=== PATIENT | male | born 1995 | race Caucasian/White ===

== ENCOUNTER 2021-11-21 18:23 | Emergency (ER) | payer SELFPAY ==
[~2021-11-21] VITALS: Ht 167.6 cm; Wt 61.0 kg
[2021-11-21] MEDS ORDERED: BO1 TP (22:44)
[2021-11-21] MEDS ORDERED: CLIN300C12 MT (22:44)
[2021-11-21 22:52] VITALS: BP 128/96
== END 2021-11-21 23:00 | disposition home or self-care (01) ==
LOC: ER 18:23
DX: S90.811A Abrasion, right foot, initial encounter (principal); W18.30XA Fall on same level, unspecified, initial encounter; Y93.51 Activity, roller skating (inline) and skateboarding; Y92.89 Other specified places as the place of occurrence of the external cause; Y99.8 Other external cause status
CPT/HCPCS: 73630; 99283